=== PATIENT | female | born 1995 | race Caucasian/White ===

== ENCOUNTER 2017-02-08 11:44 | Emergency (ER) | payer BC, OTHER ==
[2017-02-08] MEDS ORDERED: DEXTROSE 5%-NORMAL SALINE 1,000 ML IV ONE (12:12)
--- NOTE | 2017-02-08 12:15 | ER Document Report ---
ED Medical Screen (RME) - General Chief Complaint: Low Blood Sugar Stated Complaint: BLOOD SUGAR ISSUE Time Seen by Provider: 02/08/17 12:11 Notes: Patient states that she has had low blood sugar this morning. She states when she woke up she did not feel well. She states she felt fine yesterday. She states that she had a normal breakfast this morning however. She states since then she has felt very weak and lightheaded. She has checked her sugar multiple times and it has been less than 50. She states she has an insulin pump and she has placed it on "suspend" since 10 AM. She states approximate 5 days ago her nighttime dose of insulin was changed but she does not feel that it was a significant enough change to do this as it was only changed 0.1 per patient. Patient's diabetes Dr. is Dr. Johnson in [facility]. TRAVEL OUTSIDE OF THE [place] IN LAST 30 DAYS: No - Related Data Allergies/Adverse Reactions: No Known Allergies Allergy (Verified 02/08/17 12:02) Past Medical History Renal/ Medical History: Denies: Hx Peritoneal Dialysis Physical Exam - Vital signs Vitals: Temp Pulse Resp BP Pulse Ox 98.0 F 102 H 94 H 122/74 16 L 02/08/17 11:47 02/08/17 11:47 02/08/17 11:47 02/08/17 11:47 02/08/17 11:47 Course - Vital Signs Vital signs: Temp Pulse Resp BP Pulse Ox 98.0 F 102 H 94 H 122/74 16 L 02/08/17 11:47 02/08/17 11:47 02/08/17 11:47 02/08/17 11:47 02/08/17 11:47 - Laboratory Laboratory results interpreted by me: 02/08/17 11:50 POC Glucose 63 L
[2017-02-08 12:37] LABS: ABSOLUTE BASOPHILS # (AUTO) 0.1 10^3/uL (0.0-0.2); ABSOLUTE EOSINOPHILS # (AUTO) 0.1 10^3/uL (0.0-0.6); ABSOLUTE LYMPHOCYTES (AUTO) 2.2 10^3/uL (0.5-4.7); ABSOLUTE MONOCYTES (AUTO) 0.5 10^3/uL (0.1-1.4); ABSOLUTE NEUT (AUTO) 5.8 10^3/uL (1.7-8.2); BASOPHILS % (AUTO) 0.8 % (0-2); EOSINOPHILS % (AUTO) 1.7 % (0-6); HEMATOCRIT 43.8 % (36.0-47.0); HEMOGLOBIN 15.2 g/dL (12.0-15.5); HGB HCT DIFFERENCE 1.8; LYMPHOCYTES % (AUTO) 25.3 % (13-45); MEAN CORPUSCULAR HEMOGLOBIN 29.5 pg (27.0-33.4); MEAN CORPUSCULAR HGB CONC 34.6 g/dL (32.0-36.0); MEAN CORPUSCULAR VOLUME 85 fl (80-97); MONOCYTES % (AUTO) 5.4 % (3-13); RED BLOOD COUNT 5.13 10^6/uL (3.72-5.28); RED CELL DISTRIBUTION WIDTH 12.3 % (11.5-14.0); SEGMENTED NEUTROPHILS % (AUTO) 66.8 % (42-78); WHITE BLOOD COUNT 8.7 10^3/uL (4.0-10.5)
[2017-02-08 12:44] LABS: APPEARANCE,URINE CLOUDY; BILIRUBIN,URINE NEGATIVE (NEGATIVE); GLUCOSE, URINE NEGATIVE (NEGATIVE); KETONES,URINE NEGATIVE (NEGATIVE); LEUKOCYTE ESTERASE,URINE TRACE (NEGATIVE); NITRITE,URINE NEGATIVE (NEGATIVE); PROTEIN,URINE 30 mg/dL (NEGATIVE); URINE SPECIFIC GRAVITY 1.032; UROBILINOGEN,URINE NEGATIVE mg/dL (<2.0)
[2017-02-08 13:29] LABS: ALANINE AMINOTRANSFERASE 22 U/L (9-52); ALBUMIN 4.6 g/dL (3.5-5.0); ALKALINE PHOSPHATASE 72 U/L (38-126); ASPARTATE AMINO TRANSFERASE 21 U/L (14-36); BILIRUBIN,DIRECT 0.3 mg/dL (0.0-0.4); BILIRUBIN,TOTAL 0.7 mg/dL (0.2-1.3); BLOOD UREA NITROGEN 14 mg/dL (7-20); CALCIUM 9.1 mg/dL (8.4-10.2); CARBON DIOXIDE 25 mmol/L (22-30); CHLORIDE 105 mmol/L (98-107); CREATININE RESULT 0.88 mg/dL (0.52-1.25); GLUCOSE 44 mg/dL (75-110); POTASSIUM 3.9 mmol/L (3.6-5.0)
[2017-02-08 13:31] LABS: ANION GAP 15 (5-19)
--- NOTE | 2017-02-08 16:26 | ER Document Report ---
ED Blood Sugar Problem - General Chief Complaint: Low Blood Sugar Stated Complaint: WEAKNESS Time Seen by Provider: 02/08/17 12:11 Notes: The patient is a 21-year-old female, past medical history type 1 diabetes, presents after she was feeling woozy and her blood sugar was in the 30s while at work earlier today. She drank Gatorade, orange juice and crackers and her sugar increased up to 70. Her insulin dosage was changed recently by her dietary manager PA. She has not missed any meals. She denies nausea, vomiting , focal weakness, numbness, tingling, blurry vision, abdominal pain or fevers. TRAVEL OUTSIDE OF THE [place] IN LAST 30 DAYS: No - Related Data Allergies/Adverse Reactions: No Known Allergies Allergy (Verified 02/08/17 12:02) Home Medications: Current Home Medications Insulin Pump Cartridge [Omnipod] 1 each SQ ASDIR PRN 02/08/17 [History] Past Medical History - General Information source: Patient - Social History Smoking Status: Never Smoker Chew tobacco use (# tins/day): No Frequency of alcohol use: None Drug Abuse: None Family History: Reviewed & Not Pertinent Patient has suicidal ideation: No Patient has homicidal ideation: No Endocrine Medical History: Reports: Hx Diabetes Mellitus Type 1 Renal/ Medical History: Denies: Hx Peritoneal Dialysis Review of Systems - Review of Systems Notes: REVIEW OF SYSTEMS: CONSTITUTIONAL: -fevers, -chills EENT: -eye pain, -difficulty swallowing, -nasal congestion CARDIOVASCULAR:-chest pain, -syncope. RESPIRATORY: -cough, -SOB GASTROINTESTINAL: -abdominal pain, -nausea, -vomiting, -diarrhea GENITOURINARY: -dysuria, -hematuria MUSCULOSKELETAL: -back pain, -neck pain SKIN: -rash or skin lesions. HEMATOLOGIC: -easy bruising or bleeding. LYMPHATIC: -swollen, enlarged glands. NEUROLOGICAL: -altered mental status or loss of consciousness, -headache, - neurologic symptoms PSYCHIATRIC: -anxiety, -depression. ALL OTHER SYSTEMS REVIEWED AND NEGATIVE. Physical Exam - Vital signs Vitals: Temp Pulse Resp BP Pulse Ox 98.0 F 102 H 16 122/74 94 02/08/17 11:47 02/08/17 11:47 02/08/17 11:47 02/08/17 11:47 02/08/17 11:47 - Notes Notes: PHYSICAL EXAMINATION: GENERAL: Well-appearing, well-nourished and in no acute distress. HEAD: Atraumatic, normocephalic. EYES: Pupils equal round and reactive to light, extraocular movements intact, sclera anicteric, conjunctiva are normal. ENT: nares patent, oropharynx clear without exudates. Moist mucous membranes. NECK: Normal range of motion, supple without lymphadenopathy LUNGS: Breath sounds clear to auscultation bilaterally and equal. No wheezes rales or rhonchi. HEART: Regular rate and rhythm without murmurs ABDOMEN: Soft, nontender, normoactive bowel sounds. No guarding, no rebound. No masses appreciated. EXTREMITIES: Normal range of motion, no pitting or edema. No cyanosis. NEUROLOGICAL: Cranial nerves grossly intact. Normal speech, normal gait. Normal sensory and motor exams. PSYCH: Normal mood, normal affect. SKIN: Warm, Dry, normal turgor, no rashes or lesions noted. Course - Re-evaluation Re-evalutation: Patient appears well. She is provided with D5 drip, food and Gatorade with improvement in her blood sugar. After the drip was stopped, her blood sugar remained in the 200s. Instructed her to cut her basal insulin in half. She said she has an appointment with her dietary manager tomorrow to discuss further management. She has a copy of all her blood sugars while in the ER and knows when to return. No evidence of kidney failure to explain her hypoglycemia. It is most likely from multiple insulin adjustments made earlier this week by her dietary manager. - Vital Signs Vital signs: Temp Pulse Resp BP Pulse Ox 98.0 F 102 H 13 114/77 100 02/08/17 11:47 02/08/17 11:47 02/08/17 16:57 02/08/17 16:57 02/08/17 16:57 - Laboratory Result Diagrams: 02/08/17 12:26 02/08/17 12:26 Laboratory results interpreted by me: 02/08/17 02/08/17 02/08/17 11:50 12:26 12:26 Glucose 44 L POC Glucose 63 L Urine Protein 30 H Ur Leukocyte Esterase TRACE H 02/08/17 02/08/17 02/08/17 14:51 16:17 16:56 Glucose POC Glucose 69 L 204 H 235 H Urine Protein Ur Leukocyte Esterase Discharge - Discharge Clinical Impression: Hypoglycemia Condition: Stable Disposition: HOME, SELF-CARE Additional Instructions: Cut your insulin dose to 1 U/h basal rate and follow-up with your dietary manager. Hypoglycemia You have suffered an episode of hypoglycemia (low blood sugar). Typical symptoms of hypoglycemia are shaking, sweating, headache, and confusion. When severe, unconsciousness or seizure may occur. Hypoglycemia occurs when a person taking insulin or diabetes pills has a change in the amount of blood sugar available -- due to exercise, decreased food intake, or alcohol. Should you feel symptoms of hypoglycemia again, immediately take some form of sugar such as sweetened juice. As the reaction subsides, eat a complex carbohydrate such as bread. If possible, check your blood sugar using a chemical strip. If episodes are occurring without obvious explanation, contact your physician for further evaluation. Forms: Parent Work Note, Return to Work
[2017-02-08 17:02] VITALS: BP 114/77
== END 2017-02-08 17:05 | disposition home or self-care (01) ==
LOC: ER 11:44
DX: E10.649 Type 1 diabetes mellitus with hypoglycemia without coma (principal); R53.1 Weakness; Z79.4 Long term (current) use of insulin
CPT/HCPCS: 36415; 80053; 81001; 81025; 82962; 85025; 96360; 99283